=== PATIENT | female | born 1990 | race American Indian/Alaskan Native ===

== ENCOUNTER 2017-11-25 19:20 | Emergency (ER) | payer SELFPAY ==
[2017-11-25] MEDS ORDERED: NACL 0.9% 1000 ML 1,000 ML IV ONE (19:38)
--- NOTE | 2017-11-25 19:44 | Emergency Department Report ---
ED Chest Pain HPI - General Stated Complaint: PALPITATIONS Time Seen by Provider: 11/25/17 19:32 Source: patient, EMS Mode of arrival: Stretcher - History of Present Illness Initial Comments: Adela is a healthy 27-year-old female who presents with palpitations. While sitting at the dinner table, she had sudden onset of heart racing, rapid heart beat. No recent use of caffeinated energy drinks. However she does drink these drinks pretty frequently. She does smoke marijuana. Last use of marijuana earlier this week. No previous history of heart disease. No previous history of irregular heartbeat. She has had a normal physical within the last year. No history of thyroid disease. No history of heart disease. She currently does not take any control. - Related Data Allergies Allergy/AdvReac Type Severity Reaction Status Date / Time No Known Allergies Allergy Unverified 11/25/17 19:50 Heart Score - HEART Score History: Slightly suspicious EKG: Normal Age: < 45 Risk factors: No known risk factors Troponin: < normal limit HEART Score: 0 ED Review of Systems ROS: Stated complaint: PALPITATIONS Other details as noted in HPI Comment: All other systems reviewed and negative Constitutional: denies: fever, malaise Respiratory: denies: cough Cardiovascular: palpitations. denies: chest pain ED Past Medical Hx - Past Medical History Previous Medical History?: No - Surgical History Past Surgical History?: Yes Additional Surgical History: Surgical - Family History Family history: no significant, other (parents and siblings all healthy no history of heart disease) - Social History Smoking Status: Never Smoker Substance Use Type: Alcohol, Marijuana ED Physical Exam - General General appearance: alert, in no apparent distress - Head Head exam: Present: atraumatic, normocephalic - Eye Eye exam: Present: normal appearance - ENT ENT exam: Present: mucous membranes moist - Neck Neck exam: Present: normal inspection. Absent: tenderness, meningismus - Respiratory Respiratory exam: Present: normal lung sounds bilaterally. Absent: respiratory distress, wheezes, rales, rhonchi - Cardiovascular Cardiovascular Exam: Present: regular rate, normal rhythm, tachycardia, normal heart sounds. Absent: systolic murmur, diastolic murmur, rubs, gallop, clicks, JVD, S3, S4 - GI/Abdominal GI/Abdominal exam: Present: soft, normal bowel sounds. Absent: distended, tenderness, guarding, rebound - Extremities Exam Extremities exam: Present: normal inspection - Back Exam Back exam: Present: normal inspection - Neurological Exam Neurological exam: Present: alert, oriented X3 - Psychiatric Psychiatric exam: Present: normal affect, normal mood - Skin Skin exam: Present: warm, dry, intact, normal color. Absent: rash ED Course Vital Signs 11/25/17 11/25/17 19:50 21:44 Temperature 98.4 F Pulse Rate 128 H Respiratory 18 16 Rate Blood Pressure 149/92 O2 Sat by Pulse 100 100 Oximetry ED Medical Decision Making - Lab Data Result diagrams: 11/25/17 19:51 11/25/17 19:51 Laboratory Results - last 24 hr 11/25/17 11/25/17 11/25/17 19:51 19:51 19:51 WBC 7.8 RBC 3.90 Hgb 12.9 Hct 38.3 MCV 98 H MCH 33 H MCHC 34 RDW 13.7 Plt Count 324 Lymph % (Auto) 21.8 Loving % (Auto) 9.0 H Eos % (Auto) 1.1 Baso % (Auto) 1.4 Lymph # 1.7 Loving # 0.7 Eos # 0.1 Baso # 0.1 Add Manual Diff Complete Seg Neutrophils % 66.7 Seg Neutrophils # 5.2 D-Dimer < 135.00 Sodium 140 Potassium 3.2 L Chloride 101.9 Carbon Dioxide 25 Anion Gap 16 BUN 7 Creatinine 0.8 Estimated GFR > 60 BUN/Creatinine Ratio 9 Glucose 112 H Calcium 9.2 Total Bilirubin 0.50 AST 24 ALT 21 Alkaline Phosphatase 60 Troponin T < 0.010 NT-Pro-B Natriuret Pep Total Protein 7.9 Albumin 4.3 Albumin/Globulin Ratio 1.2 TSH HCG, Qual Urine Color Urine Turbidity Urine pH Ur Specific [place] Urine Protein Urine Glucose (UA) Urine Ketones Urine Blood Urine Nitrite Urine Bilirubin Urine Urobilinogen Ur Leukocyte Esterase Urine WBC (Auto) Urine RBC (Auto) U Epithel Cells (Auto) Urine Mucus Urine Opiates Screen Urine Methadone Screen Ur Barbiturates Screen Ur Phencyclidine Scrn Ur Amphetamines Screen U Benzodiazepines Scrn Urine Cocaine Screen U Marijuana (THC) Screen Drugs of Abuse Note 11/25/17 11/25/17 11/25/17 19:51 19:51 19:51 WBC RBC Hgb Hct MCV MCH MCHC RDW Plt Count Lymph % (Auto) Loving % (Auto) Eos % (Auto) Baso % (Auto) Lymph # Loving # Eos # Baso # Add Manual Diff Seg Neutrophils % Seg Neutrophils # D-Dimer Sodium Potassium Chloride Carbon Dioxide Anion Gap BUN Creatinine Estimated GFR BUN/Creatinine Ratio Glucose Calcium Total Bilirubin AST ALT Alkaline Phosphatase Troponin T NT-Pro-B Natriuret Pep 44.60 Total Protein Albumin Albumin/Globulin Ratio TSH 0.979 HCG, Qual Negative Urine Color Urine Turbidity Urine pH Ur Specific [place] Urine Protein Urine Glucose (UA) Urine Ketones Urine Blood Urine Nitrite Urine Bilirubin Urine Urobilinogen Ur Leukocyte Esterase Urine WBC (Auto) Urine RBC (Auto) U Epithel Cells (Auto) Urine Mucus Urine Opiates Screen Urine Methadone Screen Ur Barbiturates Screen Ur Phencyclidine Scrn Ur Amphetamines Screen U Benzodiazepines Scrn Urine Cocaine Screen U Marijuana (THC) Screen Drugs of Abuse Note 11/25/17 11/25/17 20:08 20:08 WBC RBC Hgb Hct MCV MCH MCHC RDW Plt Count Lymph % (Auto) Loving % (Auto) Eos % (Auto) Baso % (Auto) Lymph # Loving # Eos # Baso # Add Manual Diff Seg Neutrophils % Seg Neutrophils # D-Dimer Sodium Potassium Chloride Carbon Dioxide Anion Gap BUN Creatinine Estimated GFR BUN/Creatinine Ratio Glucose Calcium Total Bilirubin AST ALT Alkaline Phosphatase Troponin T NT-Pro-B Natriuret Pep Total Protein Albumin Albumin/Globulin Ratio TSH HCG, Qual Urine Color Yellow Urine Turbidity Clear Urine pH 6.0 Ur Specific [place] 1.025 Urine Protein 30 mg/dl Urine Glucose (UA) Neg Urine Ketones Tr Urine Blood Neg Urine Nitrite Neg Urine Bilirubin Neg Urine Urobilinogen 2.0 Ur Leukocyte Esterase Sm Urine WBC (Auto) 4.0 Urine RBC (Auto) 6.0 U Epithel Cells (Auto) 7.0 Urine Mucus 3+ Urine Opiates Screen Presumptive negative Urine Methadone Screen Presumptive negative Ur Barbiturates Screen Presumptive negative Ur Phencyclidine Scrn Presumptive negative Ur Amphetamines Screen Presumptive negative U Benzodiazepines Scrn Presumptive negative Urine Cocaine Screen Presumptive negative U Marijuana (THC) Screen Presumptive positive Drugs of Abuse Note Disclamer - EKG Data -: EKG Interpreted by Tx EKG shows normal: sinus rhythm, axis, intervals, QRS complexes, ST-T waves Rate: tachycardia - EKG Data 11/25/17 20:23 EKG obtained at 2018 Sinus tachycardia rate of 115 bpm normal axis normal intervals no ST-T signs of ischemia no signs of pericarditis no signs of heart strain - Medical Decision Making Adela is a healthy 27-year-old female who presents with sinus tachycardia rate 1:30 to 140 beats a minute. Differential diagnosis includes thyroid disease, embolism, drug abuse. No indication of GI bleed. No indication of arrhythmia. With normal TSH and normal d-dimer I suspect tachycardia due to marijuana use. She was informed of mild hypokalemia. I recommended increase hydration. Recommended cessation of marijuana use. Discharged home with heart rate 95 bpm after IV fluid therapy. Critical care attestation.: If time is entered above; I have spent that time in minutes in the direct care of this critically ill patient, excluding procedure time. ED Disposition Clinical Impression: Tachycardia, Marijuana abuse Disposition: DC-01 TO HOME OR SELFCARE Is pt being admited?: No Does the pt Need Aspirin: No Condition: Stable Instructions: Palpitations (ED), Hypokalemia (ED) Referrals: [facility] [Outside] - 3-5 Days Time of Disposition: 22:52
[2017-11-25 20:14] LABS: Hemoglobin 12.9 gm/dl (10.1-14.3)
[2017-11-25 20:15] LABS: Basophils # (Auto) 0.1 K/mm3 (0.0-0.1); Basophils % (Auto) 1.4 % (0.0-1.8); Eosinophils # (Auto) 0.1 K/mm3 (0.0-0.4); Eosinophils % (Auto) 1.1 % (0.0-4.3); Hematocrit 38.3 % (30.3-42.9); Lymphocytes # (Auto) 1.7 K/mm3 (1.2-5.4); Lymphocytes % (Auto) 21.8 % (13.4-35.0); Mean Corpuscular HGB Conc 34 % (30-34); Mean Corpuscular Hemoglobin 33 pg (28-32); Mean Corpuscular Volume 98 fl (79-97); Monocytes # (Auto) 0.7 K/mm3 (0.0-0.8); Platelet Count 324 K/mm3 (140-440); Red Cell Distribution Width 13.7 % (13.2-15.2)
[2017-11-25 20:26] LABS: Alanine Aminotransferase 21 units/L (7-56); Albumin 4.3 g/dL (3.9-5); BUN/Creatinine Ratio 9; Blood Urea Nitrogen 7 mg/dL (7-17); Calcium 9.2 mg/dL (8.4-10.2); Hemolysis Index 1
[2017-11-25 20:35] LABS: Bilirubin,Urine NEG (Negative); Blood,Urine NEG (Negative); Color,Urine Yellow (Yellow); Mucus,Urine 3+ /HPF
[2017-11-25 20:38] LABS: Amphetamine Screen,Urine PRESUMPTIVE NEGATIVE; Benzodiazepines Screen,Urine PRESUMPTIVE NEGATIVE; Cocaine Screen,Urine PRESUMPTIVE NEGATIVE; Methadone Screen,Urine PRESUMPTIVE NEGATIVE; Opiate Screen,Urine PRESUMPTIVE NEGATIVE
[2017-11-25 20:51] LABS: Cannabinoid Screen,Urine PRESUMPTIVE POSITIVE
[2017-11-26 00:20] VITALS: BP 123/74
== END 2017-11-26 00:20 | disposition home or self-care (01) ==
LOC: ED 19:20
DX: R00.0 Tachycardia, unspecified (principal); E87.6 Hypokalemia; F12.10 Cannabis abuse, uncomplicated
CPT/HCPCS: 36415; 80053; 80307; 81001; 83880; 84443; 84484; 84703; 85025; 85379; 93005; 93010; 96360; 99285; J7030

== ENCOUNTER 2017-11-28 19:12 | Emergency (ER) | payer SELFPAY ==
[2017-11-28] MEDS ORDERED: ASPIRIN PO ONE (20:22)
[2017-11-28 20:48] LABS: BUN/Creatinine Ratio 7; Basophils % (Auto) 0.4 % (0.0-1.8); Blood Urea Nitrogen 4 mg/dL (7-17); Calcium 9.3 mg/dL (8.4-10.2); Eosinophils % (Auto) 0.6 % (0.0-4.3); Hematocrit 39.2 % (30.3-42.9); Hemoglobin 13.3 gm/dl (10.1-14.3); Hemolysis Index 6; Lymphocytes % (Auto) 14.7 % (13.4-35.0); Mean Corpuscular HGB Conc 34 % (30-34); Mean Corpuscular Hemoglobin 33 pg (28-32); Mean Corpuscular Volume 98 fl (79-97); Monocytes # (Auto) 0.6 K/mm3 (0.0-0.8); Monocytes % (Auto) 8.2 % (0.0-7.3); Platelet Count 301 K/mm3 (140-440); Red Blood Count 3.99 M/mm3 (3.65-5.03); Red Cell Distribution Width 13.6 % (13.2-15.2)
--- NOTE | 2017-11-29 00:28 | Emergency Department Report ---
ED Anxiety HPI - General Chief Complaint: Anxiety Stated Complaint: CHEST PAIN Time Seen by Provider: 11/28/17 23:55 Source: patient, family Mode of arrival: Ambulatory Limitations: No Limitations - History of Present Illness Initial Comments: Patient reports that she is anxious feeling, like her nerves are on and. "Stressed". She says she has there been diagnosed with anxiety. She says she is feeling some tightness in her chest on and off and this is never happened to her before. Denies any cough or runny nose. Denies any shortness of breath. Denies any headache. Denies any neck pain or stiffness. Denies any abdominal or back pain. Denies any urinary frequency, urgency or burning. Denies any history of heart problems. Patient's that she has no medical problem and surgical history of . Denies taking any prescription or nonprescription medication. Denies alcohol, drug use. Denies any nausea or vomiting. She says she is not having any pain at present and last menstrual period was 11/14/2017. Patient was here on 11/25/2017 and her chart reflects that she had lab work done and her potassium was 3.2. HCG was negative, CBC and CMP was stable. D-dimer was negative. EKG was stable and patient urine drug screen was positive for marijuana although she told me that she did not take any drugs. Urinalysis was negative. BNP and troponin was negative. Patient was discharged home and diagnostics with active cardiac due to marijuana abuse. She was encouraged to eat food high in potassium to replete her potassium. MD Complaint: anxiety -: This morning Symptoms: chest pain (chest tightness on/off but none today), other (nerves are bad) Place: home Previous History of Same: Yes (x1. No pain now) Quality: intermittant Provoking factors: emotional stress Improves With: nothing Worsens With: thinking about event Associated symptoms: chest pain (cest tightness off/on. none now), other ( stress with bad nerves). denies: shortness of breath, palpitations, diaphoresis , confusion, cough, fever/chills, headaches, anorexia, malaise, nausea/vomiting , rash, seizure, syncope, weakness - Related Data Home Medications: Previous Rx's Medication Instructions Recorded Last Taken Type hydrOXYzine PAMOATE [Vistaril] 25 mg PO Q8H PRN #12 capsule 11/29/17 Unknown Rx Allergies/Adverse Reactions: Allergies Allergy/AdvReac Type Severity Reaction Status Date / Time No Known Allergies Allergy Verified 11/29/17 00:01 ED Review of Systems ROS: Stated complaint: CHEST PAIN Other details as noted in HPI Comment: All other systems reviewed and negative Constitutional: denies: chills, fever, weakness Eyes: denies: eye pain, eye discharge, vision change ENT: denies: ear pain, throat pain, dental pain, hearing loss, congestion Respiratory: denies: cough, shortness of breath, SOB with exertion, SOB at rest , stridor, wheezing Cardiovascular: chest pain (chest tightness on and off but not now). denies: palpitations, dyspnea on exertion, edema, syncope, paroxysmal nocturnal dyspnea Endocrine: no symptoms reported Gastrointestinal: denies: abdominal pain, nausea, vomiting, diarrhea, constipation, hematemesis, melena, hematochezia Genitourinary: denies: urgency, dysuria, discharge Musculoskeletal: denies: back pain, joint swelling, arthralgia Skin: denies: rash, lesions, change in color, change in hair/nails, pruritus Neurological: denies: headache, weakness, numbness, paresthesias, confusion, abnormal gait, vertigo Psychiatric: anxiety, other (feeling like her nerves are on hand and feeling stressed). denies: depression, auditory hallucinations, visual hallucinations, homicidal thoughts, suicidal thoughts Hematological/Lymphatic: denies: easy bruising ED Past Medical Hx - Past Medical History Previous Medical History?: No - Surgical History Past Surgical History?: Yes Additional Surgical History: Surgical - Family History Family history: no significant - Social History Smoking Status: Former Smoker Substance Use Type: Alcohol (social) Other Social History: Single and has a boyfriend. - Medications Home Medications: Home Medications Medication Instructions Recorded Confirmed Last Taken Type hydrOXYzine PAMOATE [Vistaril] 25 mg PO Q8H PRN #12 capsule 11/29/17 Unknown Rx ED Physical Exam - General Limitations: No Limitations General appearance: alert, anxious (mild) - Head Head exam: Present: atraumatic, normocephalic, normal inspection - Eye Eye exam: Present: normal appearance, PERRL, EOMI. Absent: periorbital swelling , periorbital tenderness Pupils: Present: normal accommodation - ENT ENT exam: Present: normal exam, normal orophraynx, mucous membranes moist, TM's normal bilaterally, normal external ear exam - Neck Neck exam: Present: normal inspection, full ROM, other (no C-spine tenderness). Absent: tenderness, lymphadenopathy - Respiratory Respiratory exam: Present: normal lung sounds bilaterally. Absent: respiratory distress, wheezes, rales, rhonchi, stridor, chest wall tenderness, accessory muscle use, decreased breath sounds, prolonged expiratory - Cardiovascular Cardiovascular Exam: Present: regular rate, normal rhythm, normal heart sounds. Absent: systolic murmur, diastolic murmur - GI/Abdominal GI/Abdominal exam: Present: soft, normal bowel sounds. Absent: distended, tenderness, guarding, rebound, rigid, hypoactive bowel sounds, mass, bruit, pulsatile mass, hernia - Extremities Exam Extremities exam: Present: normal inspection, full ROM, normal capillary refill , other (no clubbing, cyanosis or edema. Positive pulses all extremities and no neurovascular compromise). Absent: tenderness, pedal edema, joint swelling, calf tenderness - Back Exam Back exam: Present: normal inspection, full ROM, other (ambulates without any difficulties). Absent: tenderness, CVA tenderness (R), CVA tenderness (L), muscle spasm, paraspinal tenderness, vertebral tenderness, rash noted - Neurological Exam Neurological exam: Present: alert, oriented X3, normal gait, reflexes normal. Absent: motor sensory deficit - Psychiatric Psychiatric exam: Present: anxious (mild anxiety ). Absent: depressed, agitated , flat affect, manic, homicidal ideation, suicidal ideation - Skin Skin exam: Present: warm, dry, intact, normal color. Absent: rash ED Course Vital Signs 11/28/17 11/29/17 20:10 01:50 Temperature 98.2 F Pulse Rate 80 Respiratory 16 Rate Blood Pressure 150/100 Blood Pressure 138/72 [Left] O2 Sat by Pulse 100 Oximetry Vital Signs 11/28/17 11/29/17 20:10 01:50 Temperature 98.2 F Pulse Rate 80 Respiratory 16 Rate Blood Pressure 150/100 Blood Pressure 138/72 [Left] O2 Sat by Pulse 100 Oximetry - Reevaluation(s) Reevaluation #1: 11/29/17 01:50 Patient received Xanax 1 mg by mouth and emergency room and upper and reevaluation for anxiety, she says she is feeling a lot better. I discussed with her that I'll put her on Vistaril but she will not be able to drive when taking this medication. Patient says she is going back to [place] tomorrow. I discussed that she needs to follow up with primary care physician and have them refer her to mental health or psychologist if needed for management of anxiety and stress situation. Reevaluation #2: 11/29/17 02:00 Discussed patient that I reviewed her previous labs from 11/25/2017 a low with the doctor's notes and she had positive marijuana in her system and I discussed with her that she needs to stop using marijuana as this could be a source of her anxiety and he could also cause her to have adverse hard event. She was complaining the chest pain on 11/25/2017 and was workup and cardiac workup was negative. She was also ruled out for PE which d-dimer was negative and based on PERC rule she is at low risk for PE. ED Medical Decision Making - Lab Data Result diagrams: 11/28/17 20:25 11/28/17 20:25 Lab Results 11/28/17 11/28/17 Range/Units 20:25 20:25 WBC 7.1 (4.5-11.0) K/mm3 RBC 3.99 (3.65-5.03) M/mm3 Hgb 13.3 (10.1-14.3) gm/dl Hct 39.2 (30.3-42.9) % MCV 98 H (79-97) fl MCH 33 H (28-32) pg MCHC 34 (30-34) % RDW 13.6 (13.2-15.2) % Plt Count 301 (140-440) K/mm3 Lymph % (Auto) 14.7 (13.4-35.0) % [place] % (Auto) 8.2 H (0.0-7.3) % Eos % (Auto) 0.6 (0.0-4.3) % Baso % (Auto) 0.4 (0.0-1.8) % Lymph # 1.0 L (1.2-5.4) K/mm3 [place] # 0.6 (0.0-0.8) K/mm3 Eos # 0.0 (0.0-0.4) K/mm3 Baso # 0.0 (0.0-0.1) K/mm3 Seg Neutrophils % 76.1 H (40.0-70.0) % Seg Neutrophils # 5.4 (1.8-7.7) K/mm3 Sodium 139 (137-145) mmol/L Potassium 3.7 (3.6-5.0) mmol/L Chloride 102.3 (98-107) mmol/L Carbon Dioxide 24 (22-30) mmol/L Anion Gap 16 mmol/L BUN 4 L (7-17) mg/dL Creatinine 0.6 L (0.7-1.2) mg/dL Estimated GFR > 60 ml/min BUN/Creatinine Ratio 7 % Glucose 94 (65-100) mg/dL Calcium 9.3 (8.4-10.2) mg/dL Troponin T < 0.010 (0.00-0.029) ng/mL Please refer to the labs that was done on 11/25/2017 when patient was seen in this ED by Dr. Shelly Black. She had a potassium of 3.2 and now her potassium is 3.7. D-dimer and BNP was negative. EKG remained stable. Troponin was stable at the time. test is negative and a urinalysis was negative. - EKG Data -: EKG Interpreted by Me (interpreted by attending physician) EKG shows normal: sinus rhythm Rate: normal (at 82 bpm) - EKG Data When compared to previous EKG there are: no significant change Interpretation: no acute changes, normal EKG - Medical Decision Making ED course: She'll return in the emergency room complaining of feeling of anxiety and she states that she was here on 11/25/2017 with chest pain. Records reviewed and patient was seen by Dr. Shelly Black and was diagnosed with tachycardia due to marijuana use. Patient had denied any illicit drug use to me but her urine drug screen is positive for marijuana on 11/25/2017. She was worked up for pulmonary embolism and her d-dimer was negative and based on perc rule she is at low risk for PE. Heart scores placed her at low risk for cardiac event. SANFORD score is 0. patient troponin is normal today. Troponin and BNP on 11/25/2017 was also within normal limits. Patient was not having any chest pain and this visit she had EKG done which showed no acute findings. Her lab work was stable and potassium is back to normal at 3.7. I discussed with patient that if she is still taking marijuana then she needs to stop because this can have adverse effects on her general overall cyst them to include anxiety, elevated heart rate, nausea and vomiting and pain. Patient reports that she is going back to [place] tomorrow and I instructed her to follow up with primary care physician and if need be then she will need to be referred to mental health provider to manage anxiety. She was given Xanax 1 mg by mouth and emergency room which she voiced relief of anxiety and says she is feeling a lot better. Her blood pressure stable. I discussed the diagnosis and treatment plan along with medication and she voiced understanding. Patient discharged home in stable condition with prescription for Vistaril Critical care attestation.: If time is entered above; I have spent that time in minutes in the direct care of this critically ill patient, excluding procedure time. ED Disposition Clinical Impression: Marijuana smoker, Anxiety Disposition: DC-01 TO HOME OR SELFCARE Is pt being admited?: No Does the pt Need Aspirin: No Condition: Stable Instructions: Anxiety (ED), Cannabis Abuse (ED), Stress (ED) Additional Instructions: Please take Vistaril as prescribed but please do not drive or operate heavy machinery or take this medication as it causes drowsiness Please follow up with primary care physician when he gets back to [place] and 2 days and she might need to be referred to mental health counselor to manage anxiety Your anxiety is probably caused from marijuana use and you need to stop using Marijuana Prescriptions: hydrOXYzine PAMOATE [Vistaril] 25 mg PO Q8H PRN #12 capsule PRN Reason: Anxiety Referrals: PRIMARY [facility] [Primary Care Provider] - 12/01/17 [facility] [Outside] - 12/01/17 Forms: Work/School Release Form(ED), Accompanied Note
[2017-11-29] MEDS ORDERED: XANAX PO ONE (00:30)
[2017-11-29 01:51] VITALS: BP 138/72
== END 2017-11-29 02:20 | disposition home or self-care (01) ==
LOC: ED 19:12
DX: F41.9 Anxiety disorder, unspecified (principal); F12.10 Cannabis abuse, uncomplicated; Z87.891 Personal history of nicotine dependence
CPT/HCPCS: 36415; 80048; 84484; 85025; 93005; 93010; 99284